=== PATIENT | male | born 1975 | race Caucasian/White ===

== ENCOUNTER 2016-09-30 12:38 | Emergency (ER) | payer OTHER ==
[~2016-09-30] VITALS: Ht 188 cm; Wt 90.7 kg
[2016-09-30] MEDS ORDERED: KETOROLAC TROMETH 60MG/2ML VIAL IM ONE (14:30)
[2016-09-30] MEDS ORDERED: ETOMIDATE (2MG/ML) 20ML VIAL IV ONE (14:30)
[2016-09-30 15:44] LABS: Basophils # (auto) 0 uL; Eosinophils # (auto) 0 uL; Hematocrit 41.6 % (41.0-53.0); Hemoglobin 13.4 g/dL (13.5-17.5); Lymphocytes # (auto) 0.7 uL; Lymphocytes % (auto) 5.6 % (10.0-50.0); Mean Corpuscular Hemoglobin 28.9 pg (28.0-32.0); Mean Corpuscular Hgb Conc. 32.2 g/dL (32.0-36.0); Mean Corpuscular Volume 89.5 fL (80.0-100.0); Monocytes # (auto) 0.5 uL; Monocytes % (auto) 4.1 % (0.0-12.0); Neutrophils # (auto) 11.8 uL; Neutrophils % (auto) 90.3 % (37.0-80.0); Platelet Count (auto) 202 10^3/uL (140-450); Red Cell Distribution Width 13.1 % (11.6-16.0); White Blood Cell 13.1 10^3/uL (4.4-10.8)
[2016-09-30 15:45] VITALS: BP 153/89
[2016-09-30 16:00] LABS: INR 1.06 (0.9-1.15); Partial Thromboplastin Time 23.5 sec (22.64-33.71); Prothrombin Time 10.9 sec (9.37-12.3)
[2016-09-30 16:02] LABS: Albumin 4.1 g/dL (3.4-5.0); BUN/Creatinine Ratio 18.6; Calcium 8.9 mg/dL (8.5-10.1); Magnesium 2.2 mg/dL (1.6-2.6); Potassium 3.7 mmol/L (3.5-5.1)
[2016-09-30 16:05] LABS: Bilirubin, Total 0.5 mg/dL (0.2-1.0); Total Protein 7.1 g/dL (6.4-8.2)
[2016-09-30 16:11] LABS: B-Type Natriuretic Peptide 20.88 pg/mL (0-100)
[2016-09-30 16:22] LABS: Temperature: 21.4 C (20.0-25.0)
== END 2016-09-30 15:54 | disposition home or self-care (01) ==
LOC: ER 12:42
DX: S43.004A Unspecified dislocation of right shoulder joint, initial encounter (principal); S42.294A Other nondisplaced fracture of upper end of right humerus, initial encounter for closed fracture; V29.9XXA Motorcycle rider (driver) (passenger) injured in unspecified traffic accident, initial encounter; Y93.89 Activity, other specified; Y99.8 Other external cause status; Y92.488 Other paved roadways as the place of occurrence of the external cause
CPT/HCPCS: 23650; 36415; 73020; 73030; 80053; 83735; 83880; 84443; 84484; 85025; 85610; 85730; 94761; 96372; 99285; J1885; J7030